=== PATIENT | male | born 1965 | race Caucasian/White ===

== ENCOUNTER 2024-04-01 14:45 | Emergency (ER) | payer OTHER ==
[2024-04-01 15:04] VITALS: RESP 16; BMI 23.8
[2024-04-01 16:54] VITALS: BP 129/73; PULSE 80; TEMP 98.1
== END 2024-04-01 19:16 | disposition home or self-care (01) ==
LOC: JER 14:45
DX: R33.9 Retention of urine, unspecified (principal)
CPT/HCPCS: 99283-25; 99284-25

== ENCOUNTER 2024-07-08 15:09 | Emergency (ER) | payer OTHER ==
[2024-07-08 15:24] VITALS: BP 125/75; PULSE 83; RESP 18; TEMP 98.2; BMI 23.0
[2024-07-08 17:38] LABS: EPI CELLS 7 /uL (0-25.1); HYALINE CASTS 1 /uL (0-3.1); PH,URINE 5.5 (5.0-8.0); URINE APPEARANCE CLEAR; URINE BACTERIA 3 /uL (0-1359); URINE BILIRUBIN NEGATIVE (NEGATIVE); URINE COLOR DK YELLOW; URINE GLUCOSE (UA) NEGATIVE (NEGATIVE); URINE KETONE NEGATIVE (NEGATIVE); URINE LEUK ESTERASE NEGATIVE (NEGATIVE); URINE NITRITE NEGATIVE (NEGATIVE); URINE PROTEIN 1+ (NEGATIVE); URINE UROBILINOGEN 0.2 mg/dL (0.2-1.0); URINE WBC 53 /uL (0-25.8)
[2024-07-08 17:49] LABS: URINE RBC 162.6 /uL (0-23.9)
== END 2024-07-08 20:29 | disposition home or self-care (01) ==
LOC: JER 15:09
DX: R33.9 Retention of urine, unspecified (principal)
CPT/HCPCS: 81003; 87086; 99283-25

== ENCOUNTER 2024-08-03 17:10 | Emergency (ER) | payer OTHER ==
[2024-08-03 18:13] VITALS: BMI 21.9
[2024-08-03 18:27] LABS: EPI CELLS 4 /uL (0-25.1); HYALINE CASTS 1 /uL (0-3.1); PH,URINE 5.5 (5.0-8.0); URINE APPEARANCE CLOUDY; URINE BILIRUBIN NEGATIVE (NEGATIVE); URINE COLOR DK YELLOW; URINE GLUCOSE (UA) NEGATIVE (NEGATIVE); URINE KETONE TRACE (NEGATIVE); URINE LEUK ESTERASE 2+ (NEGATIVE); URINE NITRITE POSITIVE (NEGATIVE); URINE PROTEIN 1+ (NEGATIVE); URINE RBC 343 /uL (0-23.9); URINE UROBILINOGEN 0.2 mg/dL (0.2-1.0); URINE WBC 1986 /uL (0-25.8)
[2024-08-03] MEDS: CEFPODOXIME PROXETIL 200 MG TABLET [NF] PO ONE (19:20)
[2024-08-03 19:21] LABS: YEAST NONE SEEN (NEGATIVE)
[2024-08-04 00:42] VITALS: BP 134/75; PULSE 71; RESP 18; TEMP 98.7
== END 2024-08-04 00:42 | disposition home or self-care (01) ==
LOC: JER 17:10
DX: T83.098A Other mechanical complication of other urinary catheter, initial encounter (principal)
CPT/HCPCS: 81003; 87086; 87186; 99283-25

== ENCOUNTER 2024-08-04 17:29 | Emergency (ER) | payer OTHER ==
[2024-08-04 19:23] VITALS: BP 131/68; PULSE 65; RESP 17; TEMP 97.8; BMI 23.8
== END 2024-08-04 21:38 | disposition home or self-care (01) ==
LOC: JER 17:29
DX: T83.098A Other mechanical complication of other urinary catheter, initial encounter (principal)
CPT/HCPCS: 76857; 99284-25

== ENCOUNTER 2024-08-06 16:21 | Emergency (ER) | payer OTHER ==
[2024-08-06 17:10] VITALS: BP 117/52; PULSE 78; RESP 16; TEMP 98; BMI 23.8
== END 2024-08-06 19:05 | disposition home or self-care (01) ==
LOC: JER 16:21
DX: T83.9XXD Unspecified complication of genitourinary prosthetic device, implant and graft, subsequent encounter (principal)
CPT/HCPCS: 99283-25